=== PATIENT | female | born 1960 | race Caucasian/White ===

== ENCOUNTER → 2017-08-11 | Outpatient (CLI) | payer BC ==
[~2017-08-11] MED LIST: ASPI-482 PO; ESCITALOPRAM OXA5 MG PO; GABA-585 PO; LISI2.5T PO; MULT-671 PO; TERI7TAB PO
--- NOTE | 2017-08-11 16:56 | KCIC ---
MR of the left foot HISTORY: Increased pain in the anterior foot. Swelling in the midfoot. Patient feels a bump or tenderness at the top of the midfoot. Symptoms for years, but becoming more painful. TECHNIQUE: Routine multiplanar sequences are obtained. FINDINGS: Degenerative changes at the tarsometatarsal joints, greatest at the second TMT. The Lisfranc ligament complex appears to be intact without acute disruption. No significant tarsometatarsal joint subluxation. There is some heterogeneous signal within the marrow of the proximal second metatarsal with edema and cystic appearance. This could be degenerative in nature. Advanced degenerative changes are also seen at the articulation of the navicular with the cuneiforms, particularly the medial cuneiform. No aggressive bone destruction. No acute fracture is identified. Marrow edema signal within the medial hallux sesamoid. The visualized tendons are intact without disruption or significant tendon sheath fluid. No acute plantar fasciitis. There is a small enthesophyte at the attachment. Tarsal sinus intact. No significant joint effusion. IMPRESSION: 1. Moderate to severe primary osteoarthritis of the midfoot. 2. Nonspecific hyperintense T2 signal at the medial hallux sesamoid. Considerations include trauma, sesamoiditis or osteonecrosis. Electronically signed by: Kin Tsai MD (08/11/2017 4:53 PM) [facility]
== END | disposition home or self-care (01) ==
LOC: KCIC MRI 15:34
PROVIDERS: ATTEND Nurse Practitioner Family
DX: M19.072 Primary osteoarthritis, left ankle and foot (principal); D48.1 Neoplasm of uncertain behavior of connective and other soft tissue
CPT/HCPCS: 73718

== ENCOUNTER → 2017-11-03 | Outpatient (CLI) | payer BC ==
[2017-11-03] MEDS: GADOBUTROL 7.5 MMOL/7.5 ML VIAL IV ×2 (11:48)
== END | disposition home or self-care (01) ==
LOC: KCIC MRI 09:43
DX: G35 Multiple sclerosis (principal); G95.0 Syringomyelia and syringobulbia; M48.061 Spinal stenosis, lumbar region without neurogenic claudication; M51.36 Other intervertebral disc degeneration, lumbar region
CPT/HCPCS: 70544; 70553; 72148; A9585

== ENCOUNTER → 2019-01-04 | Outpatient (CLI) | payer BC ==
[~2019-01-04] MED LIST changes: +GADOBUTROL 7.5 MMOL/7.5 ML VIAL IV ONE; +LOSA-73 PO; +OMEP40CA5 PO
--- NOTE | 2019-01-04 09:40 | KCIC ---
MRI Brain with and without contrast History: Multiple sclerosis, right sided headache Technique: Multiplanar, multi sequential pre and postcontrast MR imaging was performed of the brain. Comparison: November 03, 2017; 11/26/2015 Findings: There is again multifocal moderate T2 and FLAIR hyperintense abnormality of the supratentorial parenchyma bilaterally. Several foci again have a perpendicular orientation relative to lateral ventricles. Overall extent of signal abnormality is very similar. There is subtle enhancement associated with a small left parietal white matter lesion axial image 18, not apparent on October 2017 exam. There has been lens surgery bilaterally. There is very minimal patchy ethmoid air cell mucosal thickening. Mastoid air cells are aerated. There is preservation of the major arterial intracranial flow voids other than nonvisualization of left intradural vertebral artery flow-void as seen previously. There is no evidence of recent infarct. Ventricular size is stable, within normal limits. There is again prominence of the subarachnoid spaces near vertex, likely component of involutional change. Impression: 1. There is again evidence of multiple sclerosis. Overall extent of signal abnormality is very similar, new punctate focus of enhancement associated with left parietal lesion. Electronically signed by: Frandy Patino MD (01/04/2019 9:37 AM) [id number]
== END | disposition home or self-care (01) ==
LOC: KCIC MRI 07:46
PROVIDERS: ATTEND Psychiatry & Neurology Neurology
DX: G35 Multiple sclerosis (principal); I10 Essential (primary) hypertension; Z87.891 Personal history of nicotine dependence
CPT/HCPCS: 70553; A9585

== ENCOUNTER → 2020-11-05 | Outpatient (CLI) | payer BC ==
[~2020-11-05] MED LIST changes: -GADOBUTROL 7.5 MMOL/7.5 ML VIAL IV ONE; +LANS30CA PO; +NORT25CA PO; +OMEP40CA45 PO; -OMEP40CA5 PO; +VALS1TAB3 PO
[2020-11-05] MEDS: GADOTERATE 7.5 MMOL/15ML VIAL. IVP ONE (12:11)
--- NOTE | 2020-11-05 14:00 | KCIC ---
EXAMINATION: Magnetic resonance imaging (MRI) of the brain and brainstem without and with contrast HISTORY: Multiple sclerosis. TECHNIQUE: Multiplanar multi-weighted MRI of the brain and brainstem was performed without and with i ntravenous contrast using the multiple sclerosis protocol. Contrast: Gadolinium based contrast. The post-contrast scan was performed approximately 5 minutes after IV contrast administration. COMPARISON: 01/04/2019, 11/03/2017 FINDINGS: There are multiple foci of hyperintensity on FLAIR and T2-weighted images within the white matter com patible with demyelinating plaques of multiple sclerosis. This includes periventricular, callosal, ce rebellar, cortical or juxtacortical, and brainstem lesions. New T2 Lesions: None T1 Hypointense ?Black Holes?: There is a black hole along the right frontal periventricular white mat ter and right periatrial white matter. Enhancing Lesions: There is stable enhancement involving the left parietal lesion (series 11, image 1 9). T2/FLAIR [place] of Disease: Moderate with 30-40 typical lesions. Parenchymal Volume Loss: None Other Significant Findings: None The upper cervical spinal cord has normal signal intensity. The visualized portions of the optic ner ves are normal. The scalp and calvarium are normal. The superior sagittal sinus demonstrates normal venous flow. The corpus callosum is normal in shape and signal intensity. The posterior fossa is unremarkable. The p ituitary and sella are normal. The brainstem and craniocervical junction are unremarkable. Diffusion weighted images reveal no hyperintensities to suggest acute cerebral infarction. The suscep tibility weighted sequences reveal no evidence of acute or chronic hemorrhage. The ventricles are nor mal in size and position without evidence of hydrocephalus. Extra-axial enhancing lesion along the left parietal lobe measures 7 mm, stable from prior examinatio n. The paranasal sinuses are normal. The visualized portions of the mastoids are unremarkable. The orbi ts appear normal. Normal flow voids are demonstrated in the carotid arteries and basilar artery. IMPRESSION: 1. Multiple intracranial white matter lesions compatible with multiple sclerosis. 2. New T2 Lesions: None 3. Enhancing Lesions: Stable left parietal enhancing lesion. 4. Stable extra-axial lesion along the left parietal convexity measuring 7 mm. Electronically signed by: Milli Roman MD (11/05/2020 1:58 PM) [id number]
== END ==
LOC: KCIC MRI 10:41
PROVIDERS: ATTEND Psychiatry & Neurology Neurology
DX: G35 Multiple sclerosis (principal); R90.0 Intracranial space-occupying lesion found on diagnostic imaging of central nervous system
CPT/HCPCS: 70553; A9575